=== PATIENT | female | born 2000 | race Caucasian/White ===

== ENCOUNTER 2021-09-10 22:40 | Emergency (ER) | payer BC ==
[2021-09-11 00:13] LABS: HEMOGLOBIN 12.8 gm/dl (12.3-15.3); RED BLOOD COUNT 4.57 M/UL (4.00-5.10); WHITE BLOOD COUNT 9.6 K/UL (4.5-11.0)
[2021-09-11 00:31] LABS: BUN/CREATININE RATIO 22 (0-10)
== END 2021-09-11 03:53 | disposition home or self-care (01) ==
LOC: ER1 22:40
PROVIDERS: Family Medicine
DX: O20.0 Threatened abortion (principal); Z88.0 Allergy status to penicillin; Z88.2 Allergy status to sulfonamides; Z3A.10 10 weeks gestation of pregnancy; Z88.1 Allergy status to other antibiotic agents
CPT/HCPCS: 80053; 81001; 84702; 85025; 86900; 86901; 99284